=== PATIENT | male | born 1990 | race Caucasian/White ===

== ENCOUNTER 2017-05-21 02:54 | Emergency (ER) | payer OTHER ==
[~2017-05-21] VITALS: Ht 185.4 cm; Wt 72.6 kg
[2017-05-21] MEDS ORDERED: OLANZAPINE 5 MG TABLET ONE (03:28)
--- NOTE | 2017-05-21 03:29 | NUR ---
PT BIBSELF, AMBULATORY TO ER BED 8. PT C/O FEELING LOST AND IS ANXIOUS PT DENIES SI OR HI. PT AOX4 RR EVEN AND UNLABORED. NO SOB NOTED. NAD NOTED. NO NVD AT THIS TIME. PT PLACED ON MONITOR. DR. TAY AT BEDSIDE FOR EVAL.
[2017-05-21] MEDS ORDERED: OLANZAPINE 5 MG TABLET PO ONE (03:30)
--- NOTE | 2017-05-21 04:53 | NUR ---
Patient is resting comfortably in bed with eyes closed. Easily aroused. VSS
[2017-05-21 05:46] VITALS: BP 110/76
--- NOTE | 2017-05-21 05:47 | NUR ---
Patient discharged to home in stable condition. Written and verbal after care instructions given. Patient verbalizes understanding of instruction.IV removed. Catheter intact and site benign. Pressure and 4x4 applied to site. No bleeding noted. pt ambulatory with a steady gait
== END 2017-05-21 05:48 | disposition home or self-care (01) ==
LOC: ER 02:58
DX: F41.9 Anxiety disorder, unspecified (principal); F17.200 Nicotine dependence, unspecified, uncomplicated; Y04.0XXA Assault by unarmed brawl or fight, initial encounter; Y92.89 Other specified places as the place of occurrence of the external cause; Y93.89 Activity, other specified; Y99.8 Other external cause status
CPT/HCPCS: 99284; A4606; Z7610

== ENCOUNTER 2017-09-27 02:21 | Emergency (ER) | payer OTHER ==
[~2017-09-27] VITALS: Ht 185.4 cm; Wt 72.6 kg
--- NOTE | 2017-09-27 02:25 | NUR ---
TO BED 3 A 26 YO MALE PATIENT BB RA88 FROM HOME. METH X6 HOURS AGO. PATIENT NOTED ANXIOUS. VSS. NAD NOTED. NONDIAPHORETIC. PLACED ON CARDIAC AND VS MONITORING. COMFORT AND SAFETY MEASURES RENDERED.
[2017-09-27] MEDS ORDERED: LORAZEPAM INJ 2 MG/ML VIAL ONE (02:27)
[2017-09-27] MEDS ORDERED: IV NS 0.9% 1,000 ML BAG IV ONE (02:30)
[2017-09-27] MEDS ORDERED: LORAZEPAM INJ 2 MG/ML VIAL IV ONE (02:30)
--- NOTE | 2017-09-27 02:30 | NUR ---
started a saline lock on the lac g18, blood drawn and sent to lab.
[2017-09-27 02:39] LABS: BASOPHILS % (AUTO) 0.2 % (0.0-2.0); EOSINOPHILS # (AUTO) 0.1 /CMM (0.0-0.7); HEMATOCRIT 46 % (39-51); HEMOGLOBIN 15.3 g/dL (13.5-17.5); LYMPHOCYTES % (AUTO) 26.4 % (20.0-44.0); MEAN CORPUSCULAR HEMOGLOBIN 31 PG (26.0-33.0); MEAN CORPUSCULAR HGB CONC 34 g/dl (31.0-36.0); MEAN CORPUSCULAR VOLUME 92 fL (80-96); MONOCYTES # (AUTO) 0.5 /CMM (0.1-1.30); MONOCYTES % (AUTO) 6.7 % (2.0-12.0); NEUTROPHILS # (AUTO) 5.1 /CMM (1.8-8.9); NEUTROPHILS % (AUTO) 65.7 % (43.0-81.0); PLATELET COUNT (AUTO) 204 /CMM (150-450); RDW COEFFICIENT OF VARIATION 13.4 (11.5-15.0); RED BLOOD CELL COUNT(AUTO) 4.93 MIL/uL (4.5-6.0); WHITE BLOOD COUNT (AUTO) 7.7 K/uL (4.3-11.0)
--- NOTE | 2017-09-27 02:39 | NUR ---
medicated patient as ordered by Dr Dumont.
[2017-09-27 02:53] LABS: CALCIUM, SERUM 9.7 mg/dL (8.5-10.1); CREATININE 1.6 mg/dL (0.6-1.3); POTASSIUM 3.5 mmol/L (3.5-5.1)
--- NOTE | 2017-09-27 05:11 | NUR ---
Denis dominguez in ED - 09/27/17 at 0512 by SHARON ongoing breathing treatment.
--- NOTE | 2017-09-27 05:18 | NUR ---
patient is sleeping comfortably at this time. vss. nad noted.
--- NOTE | 2017-09-27 07:10 | NUR ---
Report received from JET Rizzo for cont of care. Pt in bed, lying in bed appears to be asleep, with both eyes closed. pt responds to verbal and tactile stimulation. Denies any complaints at this time. VSS NAD rr even and unlabored, warm blanket provided. Will continue to monitor
--- NOTE | 2017-09-27 08:46 | NUR ---
IV removed. Catheter intact and site benign. Pressure and 4x4 applied to site. No bleeding noted.Patient discharged to home in stable condition. Written and verbal after care instructions given. Patient verbalizes understanding of instruction. Left ED in stable condition
[2017-09-27 09:33] VITALS: BP 124/74
== END 2017-09-27 09:34 | disposition home or self-care (01) ==
LOC: ER 02:23
DX: F15.10 Other stimulant abuse, uncomplicated (principal); F41.9 Anxiety disorder, unspecified; F17.200 Nicotine dependence, unspecified, uncomplicated; F10.10 Alcohol abuse, uncomplicated; Z71.6 Tobacco abuse counseling
CPT/HCPCS: 36415; 80048; 85025; 93005; 96361; 96374; 99285; 99406; A4606; J2060; J7030; Z7610